=== PATIENT | female | born 2000 | race Caucasian/White ===

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

== ENCOUNTER 2020-01-07 15:05 | Emergency (ER) | payer OTHER ==
[~2020-01-07] VITALS: Ht 175.2 cm; Wt 59.0 kg
[~2020-01-07 15:05] MED LIST changes: +CEPHALEXIN500 M1 PO
[2020-01-07] MEDS ORDERED: CEPHALEXIN500 M1 PO (16:50)
== END 2020-01-07 16:58 | disposition home or self-care (01) ==
LOC: ED 15:05
DX: S91.112A Laceration without foreign body of left great toe without damage to nail, initial encounter (principal); Z98.890 Other specified postprocedural states; Z79.899 Other long term (current) drug therapy; W45.8XXA Other foreign body or object entering through skin, initial encounter; Y93.89 Activity, other specified; Y92.34 Swimming pool (public) as the place of occurrence of the external cause; Y99.9 Unspecified external cause status

== ENCOUNTER 2020-10-31 18:59 | Emergency (ER) | payer OTHER ==
[2020-10-31] MEDS ORDERED: PREDNISONE20 M1 PO (21:55)
[2020-10-31] MEDS ORDERED: PROVENTIL HFA6.7 GM INH (21:55)
== END 2020-10-31 21:57 | disposition home or self-care (01) ==
LOC: ED 18:59
DX: J20.8 Acute bronchitis due to other specified organisms (principal); Z20.822 Contact with and (suspected) exposure to COVID-19; Z79.899 Other long term (current) drug therapy; Z79.2 Long term (current) use of antibiotics; Z98.890 Other specified postprocedural states

== ENCOUNTER → 2020-12-27 | Outpatient (CLI) | payer OTHER ==
[~2020-12-27] MED LIST changes: +AMOXICILLIN875 MG PO; +BACITRACIN28.4 GM OPH; +VIBRAMYCIN100 MG PO
== END | disposition home or self-care (01) ==
LOC: CARD 09:30
PROVIDERS: ATTEND Internal Medicine
DX: R94.31 Abnormal electrocardiogram [ECG] [EKG] (principal)

== ENCOUNTER 2021-01-11 17:44 | Emergency (ER) | payer OTHER ==
[~2021-01-11] VITALS: Ht 175.2 cm; Wt 64.9 kg
[~2021-01-11 17:44] MED LIST changes: -AMOXICILLIN875 MG PO; -BACITRACIN28.4 GM OPH; -VIBRAMYCIN100 MG PO
[2021-01-11 21:51] LABS: BILIRUBIN Negative (Negative); BLOOD 3+ (Negative); CLARITY Cloudy (Clear); COLOR Yellow (Yellow); GLUCOSE Negative (Negative); KETONE Negative (Negative); LEUKO ESTERASE Negative (Negative); NITRITE Negative (Negative); PH 5.5 (4.5-8.0); SPECIFIC GRAVITY 1.025 (1.001-1.030)
[2021-01-11 22:03] LABS: BACTERIA 2+; CALCIUM OXALATE CRYSTALS 2+; RBC TNTC rbc/hpf (0-2)
== END 2021-01-11 22:30 | disposition home or self-care (01) ==
LOC: ED 17:44
PROVIDERS: Emergency Medicine
DX: R42 Dizziness and giddiness (principal); R11.0 Nausea; Z79.899 Other long term (current) drug therapy; Z79.2 Long term (current) use of antibiotics; Z98.890 Other specified postprocedural states

== ENCOUNTER 2021-01-22 06:21 | Emergency (ER) | payer OTHER ==
[~2021-01-22] VITALS: Ht 175.2 cm; Wt 64.4 kg
[2021-01-22] MEDS ORDERED: BACITRACIN28.4 GM OPH (07:34)
[2021-01-22] MEDS ORDERED: VIBRAMYCIN100 MG PO (07:34)
[2021-01-22] MEDS ORDERED: AMOXICILLIN875 MG PO (07:36)
== END 2021-01-22 07:39 | disposition home or self-care (01) ==
LOC: ED 06:21
DX: H00.014 Hordeolum externum left upper eyelid (principal); L03.213 Periorbital cellulitis; J45.909 Unspecified asthma, uncomplicated; F17.200 Nicotine dependence, unspecified, uncomplicated; Z79.899 Other long term (current) drug therapy; Z79.2 Long term (current) use of antibiotics

== ENCOUNTER → 2021-03-30 | Outpatient (CLI) | payer OTHER ==
[~2021-03-30] MED LIST changes: +AMOXICILLIN875 MG PO; +BACITRACIN28.4 GM OPH; +VIBRAMYCIN100 MG PO
== END | disposition home or self-care (01) ==
LOC: COVID19 17:39
PROVIDERS: ATTEND Internal Medicine
DX: Z11.52 Encounter for screening for COVID-19 (principal)

== ENCOUNTER 2021-04-17 16:13 | Emergency (ER) | payer OTHER | END 2021-04-17 17:10 | disposition left against medical advice (07) | LOC: ED 16:13 | DX: R21 Rash and other nonspecific skin eruption (principal); Z53.21 Procedure and treatment not carried out due to patient leaving prior to being seen by health care provider ==

== ENCOUNTER 2021-06-29 12:00 | Emergency (ER) | payer OTHER | END 2021-06-29 14:32 | disposition home or self-care (01) | LOC: ED 12:00 | DX: J02.9 Acute pharyngitis, unspecified (principal); Z20.822 Contact with and (suspected) exposure to COVID-19 ==

== ENCOUNTER 2021-09-15 09:23 | Emergency (ER) | payer OTHER ==
[~2021-09-15] VITALS: Wt 59.0 kg
[2021-09-15] MEDS ORDERED: FLONASE ALLERG9.9 ML NAS (10:17)
== END 2021-09-15 10:35 | disposition home or self-care (01) ==
LOC: ED 09:23
DX: J30.9 Allergic rhinitis, unspecified (principal); Z20.822 Contact with and (suspected) exposure to COVID-19; Z90.89 Acquired absence of other organs; F17.200 Nicotine dependence, unspecified, uncomplicated

== ENCOUNTER 2021-10-11 17:49 | Emergency (ER) | payer OTHER ==
[~2021-10-11 17:49] MED LIST changes: +FLONASE ALLERG9.9 ML NAS
[2021-10-11] MEDS ORDERED: Motrin,Rufen800 MG PO (20:40)
[2021-10-11] MEDS ORDERED: CYCLOBENZAPRINE10 MG PO (20:40)
== END 2021-10-11 21:02 | disposition home or self-care (01) ==
LOC: ED 17:49
DX: S76.012A Strain of muscle, fascia and tendon of left hip, initial encounter (principal); S76.912A Strain of unspecified muscles, fascia and tendons at thigh level, left thigh, initial encounter; Z90.89 Acquired absence of other organs; V89.2XXA Person injured in unspecified motor-vehicle accident, traffic, initial encounter; Y93.89 Activity, other specified; Y92.89 Other specified places as the place of occurrence of the external cause; Y99.8 Other external cause status

== ENCOUNTER 2022-01-16 11:29 | Emergency (ER) | payer OTHER ==
[~2022-01-16] VITALS: Ht 177.8 cm; Wt 59.0 kg
[~2022-01-16 11:29] MED LIST changes: +CYCLOBENZAPRINE10 MG PO; +Motrin,Rufen800 MG PO
[2022-01-16 12:17] LABS: BASO % 0.3 % (0.0-1.0); EOS # 0.1 10*3/uL (0.0-0.4); EOS % 0.6 % (1.0-4.0); HEMATOCRIT 43.2 % (37.0-47.0); LYMPH # 2.9 10*3/uL (1.3-4.4); LYMPH % 30.7 % (27.0-41.0); MEAN CELL VOLUME 91.5 fl (81.0-99.0); MEAN CORPUSCULAR HGB 30.5 pg (27.0-31.0); MEAN CORPUSCULAR HGB CONC 33.3 g/dl (33.0-37.0); MEAN PLATELET VOLUME 9.8 fl (9.6-12.3); MONO # 0.8 10*3/uL (0.1-1.0); MONO % 8.4 % (3.0-9.0); NEUT # 5.6 10*3/uL (2.3-7.9); NEUT % 59.8 % (47.0-73.0); PLATELET COUNT AUTOMATED 354 10*3/uL (130-400); RED BLOOD COUNT 4.72 10*6/uL (4.10-5.10); RED CELL DISTRI WIDTH 12.3 % (0-14.5); WHITE BLOOD COUNT 9.4 10*3/uL (4.8-10.8)
[2022-01-16 12:32] LABS: ALKALINE PHOSPHATASE 62 U/L (45-117); BUN 8 mg/dl (7-24); CHLORIDE 106 mmol/L (98-107); CREATININE 0.71 mg/dL (0.55-1.02); LIPASE 92 U/L (73-393); POTASSIUM 3.1 mmol/L (3.5-5.1); SGOT/AST 17 IU/L (3-35); SGPT/ALT 16 U/L (12-78); SODIUM 139 mmol/L (136-145); TOTAL PROTEIN 6.6 gm/dL (6.4-8.2)
[2022-01-16] MEDS ORDERED: K-TAB20 MEQ PO (14:47)
== END 2022-01-16 15:01 | disposition home or self-care (01) ==
LOC: ED 11:29
PROVIDERS: Physician Assistant
DX: R07.9 Chest pain, unspecified (principal); R55 Syncope and collapse; E87.6 Hypokalemia; Z90.89 Acquired absence of other organs

== ENCOUNTER 2022-05-31 18:43 | Emergency (ER) | payer OTHER ==
[~2022-05-31] VITALS: Ht 177.8 cm; Wt 61.2 kg
[~2022-05-31 18:43] MED LIST changes: +K-TAB20 MEQ PO
== END 2022-05-31 20:53 | disposition home or self-care (01) ==
LOC: ED 18:43
DX: S66.211A Strain of extensor muscle, fascia and tendon of right thumb at wrist and hand level, initial encounter (principal); F17.200 Nicotine dependence, unspecified, uncomplicated; X50.1XXA Overexertion from prolonged static or awkward postures, initial encounter; Y93.89 Activity, other specified; Y92.89 Other specified places as the place of occurrence of the external cause; Y99.9 Unspecified external cause status

== ENCOUNTER 2022-09-21 16:45 | Emergency (ER) | payer OTHER ==
[~2022-09-21] VITALS: Wt 61.2 kg
[2022-09-21] MEDS ORDERED: ZANAFLEX4 MG PO (21:22)
[2022-09-21] MEDS ORDERED: NAPROSYN500 MG PO (21:22)
== END 2022-09-21 20:39 | disposition home or self-care (01) ==
LOC: ED 16:45
DX: S80.01XA Contusion of right knee, initial encounter (principal); R51.9 Headache, unspecified; M54.50 Low back pain, unspecified; Z90.89 Acquired absence of other organs; V89.2XXA Person injured in unspecified motor-vehicle accident, traffic, initial encounter; Y93.89 Activity, other specified; Y92.89 Other specified places as the place of occurrence of the external cause; Y99.8 Other external cause status

== ENCOUNTER 2022-11-08 16:06 | Emergency (ER) | payer OTHER ==
[~2022-11-08] VITALS: Wt 61.2 kg
[~2022-11-08 16:06] MED LIST changes: +NAPROSYN500 MG PO; +ZANAFLEX4 MG PO
== END 2022-11-08 17:55 | disposition home or self-care (01) ==
LOC: ED 16:06
DX: S93.402A Sprain of unspecified ligament of left ankle, initial encounter (principal); J45.909 Unspecified asthma, uncomplicated; Z90.89 Acquired absence of other organs; Z98.890 Other specified postprocedural states; X50.3XXA Overexertion from repetitive movements, initial encounter; Y93.89 Activity, other specified; Y92.89 Other specified places as the place of occurrence of the external cause; Y99.8 Other external cause status

== ENCOUNTER 2023-01-21 21:49 | Emergency (ER) | payer OTHER ==
[~2023-01-21] VITALS: Ht 177.8 cm; Wt 61.2 kg
[2023-01-21] MEDS ORDERED: NAPROSYN500 MG PO (22:25)
== END 2023-01-21 22:41 | disposition home or self-care (01) ==
LOC: ED 21:49
DX: S83.92XA Sprain of unspecified site of left knee, initial encounter (principal); J45.909 Unspecified asthma, uncomplicated; Z90.89 Acquired absence of other organs; Z98.890 Other specified postprocedural states; X50.1XXA Overexertion from prolonged static or awkward postures, initial encounter; Y93.89 Activity, other specified; Y92.129 Unspecified place in nursing home as the place of occurrence of the external cause; Y99.0 Civilian activity done for income or pay

== ENCOUNTER 2023-02-12 15:15 | Emergency (ER) | payer OTHER | END 2023-02-12 16:01 | disposition left against medical advice (07) | LOC: ED 15:15 | DX: Z00.00 Encounter for general adult medical examination without abnormal findings (principal); Z53.21 Procedure and treatment not carried out due to patient leaving prior to being seen by health care provider ==

== ENCOUNTER 2023-06-14 23:47 | Emergency (ER) | payer OTHER ==
[~2023-06-14] VITALS: Ht 177.8 cm; Wt 70.8 kg
[2023-06-15] MEDS ORDERED: NAPROXEN250 MG PO (00:20)
[2023-06-15] MEDS ORDERED: METHOCARBAMOL500 M1 PO (00:20)
== END 2023-06-15 01:35 | disposition home or self-care (01) ==
LOC: ED 23:47
DX: S29.012A Strain of muscle and tendon of back wall of thorax, initial encounter (principal); J45.909 Unspecified asthma, uncomplicated; Z90.89 Acquired absence of other organs; Z98.890 Other specified postprocedural states; Z79.899 Other long term (current) drug therapy; X50.0XXA Overexertion from strenuous movement or load, initial encounter; Y93.89 Activity, other specified; Y92.89 Other specified places as the place of occurrence of the external cause; Y99.0 Civilian activity done for income or pay

== ENCOUNTER 2023-12-13 06:39 | Emergency (ER) | payer MEDICAID ==
[~2023-12-13] VITALS: Ht 177.8 cm; Wt 64.4 kg
[~2023-12-13 06:39] MED LIST changes: +METHOCARBAMOL500 M1 PO; +NAPROXEN250 MG PO
[2023-12-13] MEDS ORDERED: SODIUM CHLORIDE 0.9% 1,000 ML IV ONE (07:00)
[2023-12-13 07:21] LABS: BASO % 0.4 % (0.0-1.0); EOS # 0.1 10*3/uL (0.0-0.4); EOS % 0.5 % (1.0-4.0); HEMATOCRIT 37.5 % (37.0-47.0); LYMPH % 28.6 % (27.0-41.0); MEAN CELL VOLUME 93.8 fl (81.0-99.0); MEAN CORPUSCULAR HGB 30.8 pg (27.0-31.0); MEAN CORPUSCULAR HGB CONC 32.8 g/dl (33.0-37.0); MEAN PLATELET VOLUME 10.1 fl (9.6-12.3); MONO # 0.8 10*3/uL (0.1-1.0); MONO % 7.5 % (3.0-9.0); NEUT # 6.5 10*3/uL (2.3-7.9); NEUT % 62.7 % (47.0-73.0); PLATELET COUNT AUTOMATED 372 10*3/uL (130-400); RED CELL DISTRI WIDTH 11.9 % (0-14.5); WHITE BLOOD COUNT 10.4 10*3/uL (4.8-10.8)
[2023-12-13 07:30] LABS: BILIRUBIN Negative (Negative); BLOOD Trace-Lysed (Negative); CLARITY Clear (Clear); COLOR Yellow (Yellow); GLUCOSE Negative (Negative); KETONE Negative (Negative); LEUKO ESTERASE Negative (Negative); NITRITE Negative (Negative); PH 7.5 (4.5-8.0); SPECIFIC GRAVITY 1.015 (1.001-1.030)
[2023-12-13 07:36] LABS: ALKALINE PHOSPHATASE 62 U/L (46-116); BUN 6 mg/dl (9-23); CHLORIDE 107 mmol/L (98-107); POTASSIUM 3.3 mmol/L (3.4-5.1); SGPT/ALT 9 U/L (5-49); TOTAL PROTEIN 6.6 gm/dL (6.0-8.0)
[2023-12-13 07:39] LABS: BETA-HCG, QUANT < 3.0 mIU/mL (3-10)
[2023-12-13 07:49] LABS: MUCOUS TRACE; RBC 0-2 rbc/hpf (0-2); WBC 0-2 wbc/hpf (0-5)
[2023-12-13] MEDS ORDERED: POTASSIUM CHLORIDE 20 MEQ TAB PO ONE (08:10)
[2023-12-13] MEDS ORDERED: ATENOLOL 25 MG TAB PO ONE (08:10)
[2023-12-13] MEDS ORDERED: ATENOLOL25 MG PO (08:19)
== END 2023-12-13 08:25 | disposition home or self-care (01) ==
LOC: ED 06:39
PROVIDERS: Emergency Medicine
DX: F45.8 Other somatoform disorders (principal); E87.6 Hypokalemia; J45.909 Unspecified asthma, uncomplicated; Z90.89 Acquired absence of other organs; Z98.890 Other specified postprocedural states; Z87.891 Personal history of nicotine dependence

== ENCOUNTER 2024-04-21 14:20 | Emergency (ER) | payer SELFPAY ==
[~2024-04-21] VITALS: Ht 177.8 cm; Wt 65.8 kg
[2024-04-21] MEDS ORDERED: FAMOTIDINE 20 MG TAB PO ONE (15:15)
[2024-04-21] MEDS ORDERED: diphenhydrAMINE hydrochloride 50 MG/ML VIAL IM ONE (15:15)
[2024-04-21] MEDS ORDERED: methylPREDNISolone sod succ 125 MG VIAL IM ONE (15:15)
[2024-04-21] MEDS ORDERED: PREDNISONE50 MG PO (16:24)
== END 2024-04-21 16:31 | disposition home or self-care (01) ==
LOC: ED 14:20
DX: L50.9 Urticaria, unspecified (principal); T49.2X5A Adverse effect of local astringents and local detergents, initial encounter; J45.909 Unspecified asthma, uncomplicated; Z90.89 Acquired absence of other organs; Z98.890 Other specified postprocedural states; Y92.89 Other specified places as the place of occurrence of the external cause

== ENCOUNTER 2025-01-02 23:28 | Emergency (ER) | payer OTHER ==
[~2025-01-02] VITALS: Ht 177.8 cm; Wt 61.2 kg
[~2025-01-02 23:28] MED LIST changes: +PREDNISONE50 MG PO
[2025-01-03] MEDS ORDERED: Tdap Vaccine 0.5 ML SYR (Adult Vaccine) IM ONE (00:45)
[2025-01-03] MEDS ORDERED: NAPROSYN500 MG PO (00:47)
== END 2025-01-03 01:10 | disposition home or self-care (01) ==
LOC: ED 23:28
DX: S91.119A Laceration without foreign body of unspecified toe without damage to nail, initial encounter (principal); M79.674 Pain in right toe(s); Z79.899 Other long term (current) drug therapy; Z98.890 Other specified postprocedural states; W31.89XA Contact with other specified machinery, initial encounter; Y93.89 Activity, other specified; Y92.89 Other specified places as the place of occurrence of the external cause; Y99.8 Other external cause status

== ENCOUNTER 2025-03-11 06:39 | Emergency (ER) | payer OTHER ==
[~2025-03-11] VITALS: Ht 177.8 cm; Wt 59.9 kg
== END 2025-03-11 08:34 | disposition home or self-care (01) ==
LOC: ED 06:39
DX: U07.1 COVID-19 (principal); J45.909 Unspecified asthma, uncomplicated; Z98.890 Other specified postprocedural states

== ENCOUNTER 2025-05-18 20:42 | Emergency (ER) | payer OTHER ==
[~2025-05-18] VITALS: Ht 177.8 cm; Wt 65.8 kg
[2025-05-18] MEDS ORDERED: PREDNISONE20 M1 PO (21:08)
== END 2025-05-18 21:31 | disposition home or self-care (01) ==
LOC: ED 20:42
DX: L25.9 Unspecified contact dermatitis, unspecified cause (principal); J45.909 Unspecified asthma, uncomplicated; Z86.16 Personal history of COVID-19